=== PATIENT | female | born 2000 | race Caucasian/White ===

== ENCOUNTER 2018-12-10 14:21 | Emergency (ER) | payer OTHER ==
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
[2018-12-10] MEDS ORDERED: OXYCODONE-ACETAMINOPHEN 5-325 MG TABLET PO ONE (16:46)
[2018-12-10] MEDS ORDERED: SILVER SULFADIAZINE 1% CREAM 50 GM TP ONE (17:14)
[2018-12-10] MEDS ORDERED: CEPHALEXIN 500 MG CAPSULE PO ONE (17:15)
[2018-12-10] MEDS ORDERED: IBUPROFEN 800 MG TABLET PO ONE (17:17)
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
[2018-12-10] MEDS ORDERED: SILVER SULFADIAZINE 1% CREAM 50 GM ONE (17:44)
[2018-12-10 18:27] VITALS: BP 115/56
== END 2018-12-10 18:28 | disposition home or self-care (01) ==
LOC: ER 14:21
DX: T23.162A Burn of first degree of back of left hand, initial encounter (principal); X19.XXXA Contact with other heat and hot substances, initial encounter; Y99.0 Civilian activity done for income or pay; T23.261D Burn of second degree of back of right hand, subsequent encounter; X19.XXXD Contact with other heat and hot substances, subsequent encounter; F17.200 Nicotine dependence, unspecified, uncomplicated
CPT/HCPCS: 99283; J3490